=== PATIENT | male | born 1945 | race Caucasian/White ===

== ENCOUNTER 2021-03-10 14:14 | Emergency (ER) | payer MEDICARE, BC ==
[~2021-03-10] VITALS: Ht 177.8 cm; Wt 91.8 kg
[2021-03-10] MEDS ORDERED: HYDROCHLOROTH12.5 M1 PO (15:33)
[2021-03-10] MEDS ORDERED: OMEPRAZOLE40 MG PO (15:33)
[2021-03-10] MEDS ORDERED: LISINOPRIL10 MG PO (15:34)
[2021-03-10] MEDS ORDERED: GLUCOPHAGE PO (15:34)
[2021-03-10] MEDS ORDERED: FINASTERIDE5 M1 PO (15:34)
[2021-03-10] MEDS ORDERED: SIMVASTATIN40 M1 PO (15:34)
[2021-03-10] MEDS ORDERED: ASPIRIN E.C. 8181 MG PO (15:36)
[2021-03-10] MEDS ORDERED: GOOD SENSE ALLE10 MG PO (15:36)
[2021-03-10] MEDS ORDERED: SYSTANE BALANCE10 M1 OU (15:37)
[2021-03-10] MEDS ORDERED: NATURAL C500 MG PO (15:37)
[2021-03-10] MEDS ORDERED: CEPHALEXIN500 M2 PO (15:45)
[2021-03-10 16:00] VITALS: BP 138/78
== END 2021-03-10 16:14 | disposition home or self-care (01) ==
LOC: ED 14:14
DX: S61.412A Laceration without foreign body of left hand, initial encounter (principal); E11.9 Type 2 diabetes mellitus without complications; I10 Essential (primary) hypertension; Z23 Encounter for immunization; Z88.0 Allergy status to penicillin; Z88.2 Allergy status to sulfonamides; Z79.84 Long term (current) use of oral hypoglycemic drugs; Z79.899 Other long term (current) drug therapy; X50.1XXA Overexertion from prolonged static or awkward postures, initial encounter
CPT/HCPCS: 90715

== ENCOUNTER 2021-03-16 14:40 | Emergency (ER) | payer MEDICARE, BC ==
[~2021-03-16] VITALS: Ht 172.7 cm; Wt 91.8 kg
[~2021-03-16 14:40] MED LIST: ASPIRIN E.C. 8181 MG PO; CEPHALEXIN500 M2 PO; FINASTERIDE5 M1 PO; GLUCOPHAGE PO; GOOD SENSE ALLE10 MG PO; HYDROCHLOROTH12.5 M1 PO; LISINOPRIL10 MG PO; NATURAL C500 MG PO; OMEPRAZOLE40 MG PO; SIMVASTATIN40 M1 PO; SYSTANE BALANCE10 M1 OU
[2021-03-16] MEDS ORDERED: CEPHALEXIN500 M1 PO (15:48)
[2021-03-16 16:15] VITALS: BP 137/83
== END 2021-03-16 16:15 | disposition home or self-care (01) ==
LOC: ED 14:40
DX: S61.412A Laceration without foreign body of left hand, initial encounter (principal); L03.114 Cellulitis of left upper limb; E11.9 Type 2 diabetes mellitus without complications; I10 Essential (primary) hypertension; Z88.0 Allergy status to penicillin; Z88.1 Allergy status to other antibiotic agents; Z79.84 Long term (current) use of oral hypoglycemic drugs; Z79.899 Other long term (current) drug therapy; W37.8XXA Explosion and rupture of other pressurized tire, pipe or hose, initial encounter